=== PATIENT | male | born 1950 | race Caucasian/White ===

== ENCOUNTER 2017-08-01 16:28 | Emergency (ER) | payer MEDICARE ==
[~2017-08-01] VITALS: Ht 167.6 cm; Wt 81.0 kg
[2017-08-01] MEDS ORDERED: SODIUM CHLORIDE FLUSH 10ML SYR IVF ONE (17:00)
[2017-08-01] MEDS ORDERED: ONDANSETRON 2MG/ML, 2ML IVPush ONE (17:00)
[2017-08-01] MEDS ORDERED: HYDROmorphone 1 MG/ML, 1ML IVPush PRN (17:00)
[2017-08-01 17:02] LABS: BASOPHILS # (AUTO) 0.04 x10^3/uL (0-0.1); BASOPHILS % (AUTO) 0 % (0-1); EOSINOPHILS # (AUTO) 0.19 x10^3/uL (0-0.4); EOSINOPHILS % (AUTO) 2 % (1-7); LYMPHOCYTES # (AUTO) 2.49 x10^3/uL (1-3.4); LYMPHOCYTES % (AUTO) 24 % (22-44); MD NO; MEAN CORPUSCULAR HEMOGLOBIN 34.2 pg (27.5-34.5); MEAN CORPUSCULAR HGB CONC 33.8 g/dL (33.2-36.2); MEAN CORPUSCULAR VOLUME 101.2 fL (81-97); MEAN PLATELET VOLUME 6.9 fL (7.4-10.4); MONOCYTES # (AUTO) 0.57 x10^3/uL (0.2-0.8); MONOCYTES % (AUTO) 5 % (2-9); NEUTROPHILS # (AUTO) 7.27 x10^3/uL (1.8-6.8); NEUTROPHILS % (AUTO) 69 % (42-75); PLATELET COUNT 190 x10^3/uL (130-400); RED BLOOD COUNT 4.39 x10^6/uL (4.38-5.82); RED CELL DISTRIBUTION WIDTH 15.7 % (9.4-14.8)
[2017-08-01 17:12] LABS: ALANINE AMINOTRANSFERASE 50 U/L (12-78); ALBUMIN 2.2 g/dL (3.4-5.0); ANION GAP 6 mmol/L (5-15); CALCIUM 8.4 mg/dL (8.5-10.1); CHLORIDE 109 mmol/L (98-107); CREATININE 0.84 mg/dL (0.7-1.3)
[2017-08-01 17:14] LABS: ALKALINE PHOSPHATASE 167 U/L (45-117); BILIRUBIN,TOTAL 2.5 mg/dL (0.2-1.0); TOTAL PROTEIN 8.9 g/dL (6.4-8.2)
[2017-08-01 17:19] LABS: INTERNATIONAL NORMALIZED RATIO 1.33 (0.93-1.1); PROTHROMBIN TIME 13.8 Seconds (9.6-11.5)
[2017-08-01] MEDS ORDERED: ONDANSETRON 2MG/ML, 2ML ONE (17:20)
[2017-08-01] MEDS ORDERED: HYDROmorphone 2 MG/ML, 1ML ONE (17:21)
[2017-08-01] MEDS ORDERED: LIDOCAINE 2%, 20ML ONE (18:00)
[2017-08-01] MEDS ORDERED: ALBUMIN HUMAN 25% 100 ML IV ONE (19:30)
[2017-08-01 19:46] LABS: MICROSCOPIC INDICATED
[2017-08-01 19:48] LABS: CULTURE INDICATED? YES
[2017-08-01 20:18] VITALS: BP 150/55
[2017-08-01 20:44] LABS: CELLS COUNTED 77
== END 2017-08-01 22:02 | disposition home or self-care (01) ==
LOC: ED 21:19
DX: N30.00 Acute cystitis without hematuria (principal); R18.8 Other ascites; Z87.891 Personal history of nicotine dependence; Z86.19 Personal history of other infectious and parasitic diseases
CPT/HCPCS: 36415; 49083; 76700; 80053; 81001; 82042; 82140; 83615; 83690; 85025; 85610; 85730; 87070; 87086; 87205; 88112; 88305; 89051; 96365; 96375; 99285; J1170; J2405; J3490; P9047

== ENCOUNTER 2017-08-09 13:14 | Emergency (ER) | payer MEDICARE ==
[~2017-08-09] VITALS: Ht 167.6 cm; Wt 74.3 kg
[2017-08-09] MEDS ORDERED: ONDANSETRON 2MG/ML, 2ML IVPush ONE (14:00)
[2017-08-09] MEDS ORDERED: SODIUM CHLORIDE FLUSH 10ML SYR IVF ONE (14:00)
[2017-08-09 14:15] LABS: BASOPHILS # (AUTO) 0.02 x10^3/uL (0-0.1); BASOPHILS % (AUTO) 0 % (0-1); EOSINOPHILS # (AUTO) 0.16 x10^3/uL (0-0.4); EOSINOPHILS % (AUTO) 2 % (1-7); LYMPHOCYTES # (AUTO) 2.08 x10^3/uL (1-3.4); LYMPHOCYTES % (AUTO) 21 % (22-44); MD NO; MEAN CORPUSCULAR HEMOGLOBIN 34.4 pg (27.5-34.5); MEAN CORPUSCULAR HGB CONC 34.1 g/dL (33.2-36.2); MEAN CORPUSCULAR VOLUME 100.9 fL (81-97); MEAN PLATELET VOLUME 6.9 fL (7.4-10.4); MONOCYTES # (AUTO) 0.75 x10^3/uL (0.2-0.8); MONOCYTES % (AUTO) 8 % (2-9); NEUTROPHILS # (AUTO) 7.05 x10^3/uL (1.8-6.8); NEUTROPHILS % (AUTO) 70 % (42-75); PLATELET COUNT 211 x10^3/uL (130-400); RED BLOOD COUNT 4.41 x10^6/uL (4.38-5.82); RED CELL DISTRIBUTION WIDTH 15.6 % (9.4-14.8)
[2017-08-09 14:26] LABS: ALANINE AMINOTRANSFERASE 60 U/L (12-78); ALBUMIN 2.3 g/dL (3.4-5.0); ANION GAP 8 mmol/L (5-15); CALCIUM 8.3 mg/dL (8.5-10.1); CHLORIDE 103 mmol/L (98-107); CREATININE 0.96 mg/dL (0.7-1.3)
[2017-08-09] MEDS ORDERED: ONDANSETRON 2MG/ML, 2ML ONE (14:27)
[2017-08-09 14:29] LABS: ALKALINE PHOSPHATASE 200 U/L (45-117); BILIRUBIN,TOTAL 2.3 mg/dL (0.2-1.0); TOTAL PROTEIN 8.4 g/dL (6.4-8.2)
[2017-08-09] MEDS ORDERED: FURO-93 PO (14:35)
[2017-08-09] MEDS ORDERED: LIDOCAINE 1%, 20ML ONE (15:00)
[2017-08-09] MEDS ORDERED: SPIR50TA2 PO (15:04)
[2017-08-09] MEDS ORDERED: FURO20TA3 PO (15:04)
[2017-08-09 15:37] LABS: MICROSCOPIC INDICATED
[2017-08-09 15:39] LABS: CULTURE INDICATED? YES
[2017-08-09] MEDS ORDERED: ALBUMIN HUMAN 25% 100 ML IV ONE (16:00)
[2017-08-09 16:41] VITALS: BP 140/69
== END 2017-08-09 17:03 | disposition home or self-care (01) ==
LOC: ED 16:15
DX: R18.8 Other ascites (principal); K74.60 Unspecified cirrhosis of liver; Z87.891 Personal history of nicotine dependence; R82.99 Other abnormal findings in urine
CPT/HCPCS: 36415; 49083; 71045; 80053; 81001; 83690; 85025; 87086; 96365; 96366; 99285; J3490; P9047

== ENCOUNTER → 2017-08-23 | Outpatient (CLI) | payer MEDICARE ==
[~2017-08-23] MED LIST: ALBUMIN HUMAN 25%, 25GM/100ML ONE; FURO-93 PO; FURO20TA3 PO; LIDOCAINE 1%, 20ML ONE; SPIR50TA2 PO
== END | disposition home or self-care (01) ==
LOC: RAD 11:38
PROVIDERS: ATTEND Internal Medicine
DX: K70.11 Alcoholic hepatitis with ascites (principal); K70.31 Alcoholic cirrhosis of liver with ascites; E88.09 Other disorders of plasma-protein metabolism, not elsewhere classified
CPT/HCPCS: 49083; J3490; P9047